=== PATIENT | male | born 2000 | race Caucasian/White ===

== ENCOUNTER 2021-07-14 16:26 | Emergency (ER) | payer OTHER ==
[2021-07-14] MEDS ORDERED: CEPHALEXIN500 MG PO (22:26)
== END 2021-07-14 22:45 | disposition home or self-care (01) ==
LOC: FER 16:26
DX: I96 Gangrene, not elsewhere classified (principal); F17.210 Nicotine dependence, cigarettes, uncomplicated; Z88.0 Allergy status to penicillin
CPT/HCPCS: 99282